=== PATIENT | female | born 1965 | race Caucasian/White ===

== ENCOUNTER 2020-04-06 20:28 | Emergency (ER) | payer SELFPAY ==
[~2020-04-06] VITALS: Ht 154.9 cm; Wt 92.1 kg
[2020-04-06] MEDS ORDERED: diphenhydrAMINE 50 MG/ML VIAL ONE (20:37)
[2020-04-06] MEDS ORDERED: FAMOTIDINE 20 MG/2 ML VIAL ONE (20:37)
[2020-04-06] MEDS ORDERED: IV NORMAL SALINE 1000ML BAG 1,000 ML IV ONE (20:45)
[2020-04-06] MEDS ORDERED: methylPREDNISolone SOD SUCC PF 125 MG/2 ML VIAL. IV ONE (20:45)
[2020-04-06] MEDS ORDERED: FAMOTIDINE 20 MG/2 ML VIAL IVP ONE (20:45)
[2020-04-06] MEDS ORDERED: diphenhydrAMINE 50 MG/ML VIAL IVP ONE (20:45)
--- NOTE | 2020-04-06 20:46 | PHYS DOC ---
General Adult EDM: Chief Complaint: ALLERGIC REACTION HPI: HPI: Patient is a 54 year old female who presents with states she was stung by a wasp around 1900 tonight. She began getting hives and very itchy. Patient has a large hive to her right upper thigh that is almost baseball sized. She has many hives all over her back and on her abdomen and to the right side of her tongue. Her palms are also very itchy. Patient took 125 mg of Benadryl by mouth before coming at 1900. (BEATRIZ BOWEN APRN) Review of Systems: Review of Systems: Constitutional: Denies fever or chills. [] Eyes: Denies change in visual acuity. [] HENT: Denies nasal congestion or sore throat. Hives to right side of tongue. [] Respiratory: Denies cough or shortness of breath. [] Cardiovascular: Denies chest pain or edema. [] GI: Denies abdominal pain, nausea, vomiting, bloody stools or diarrhea. [] : Denies dysuria. [] Musculoskeletal: Denies back pain or joint pain. Itching palms bilaterally. [] Integument: Denies rash. Hives to back and chest and tongue. Right upper thigh hive where she was stung. [] Neurologic: Denies headache, focal weakness or sensory changes. [] Endocrine: Denies polyuria or polydipsia. [] Lymphatic: Denies swollen glands. [] Psychiatric: Denies depression or anxiety. [] (BEATRIZ BOWEN APRN) Heart Score: Risk Factors: Risk Factors: DM, Current or recent (<one month) smoker, HTN, HLP, family history of CAD, obesity. Risk Scores: Score 0 - 3: 2.5% MACE over next 6 weeks - Discharge Home Score 4 - 6: 20.3% MACE over next 6 weeks - Admit for Clinical Observation Score 7 - 10: 72.7% MACE over next 6 weeks - Early Invasive Strategies (BEATRIZ BOWEN APRN) Current Medications: Current Medications Medications (Trade) Dose Ordered Sig/Daryl Start Time Stop Time Status Last Admin Dose Admin Diphenhydramine HCl (Benadryl) 50 mg STK-MED ONCE 04/06/20 20:37 04/06/20 20:37 DC Famotidine (Pepcid Vial) 20 mg STK-MED ONCE 04/06/20 20:37 04/06/20 20:37 DC Methylprednisolone Sodium Succinate (SOLU-Medrol 125MG VIAL) 125 mg 1X ONCE 04/06/20 20:45 04/06/20 20:46 UNV Sodium Chloride 1,000 ml @ 1,000 mls/hr 1X ONCE 04/06/20 20:45 04/06/20 21:44 UNV 04/06/20 20:39 1,000 MLS/HR (BEATRIZ BOWEN APRN) Physical Exam: PE: Constitutional: Well developed, well nourished, no acute distress, non-toxic appearance. [] HENT: Normocephalic, atraumatic, bilateral external ears normal, oropharynx moist, no oral exudates, nose normal. Hives on right side of tongue. [] Eyes: PERRLA, EOMI, conjunctiva normal, no discharge. [] Neck: Normal range of motion, no tenderness, supple, no stridor. [] Cardiovascular:Heart rate regular rhythm, no murmur [] Lungs & Thorax: Bilateral breath sounds clear to auscultation [] Abdomen: Bowel sounds normal, soft, no tenderness, no masses, no pulsatile masses. [] Skin: Warm, dry, no erythema, no rash. Hives to her back and around on her abdomen. Palms are red and itchy bilaterally. Large hive to right upper thigh where sting. [] Back: No tenderness, no CVA tenderness. [] Extremities: No tenderness, no cyanosis, no clubbing, ROM intact, no edema. [] Neurologic: Alert and oriented X 3, normal motor function, normal sensory function, no focal deficits noted. [] Psychologic: Affect normal, judgement normal, mood normal. [] (BEATRIZ BOWEN APRN) EKG: EKG: [] (BEATRIZ BOWEN APRN) Radiology/Procedures: Radiology/Procedures: [] (BEATRIZ BOWEN APRN) Course & Med Decision Making: Course & Med Decision Making Pertinent Labs and Imaging studies reviewed. (See chart for details) Patient speaks in full complete sentences. Alert and oriented. Ambulatory with a steady gait. Lungs are clear to auscultation all lobes. There is no swelling in the throat or the uvula. See HPI. No respiratory distress. Patient is not given more Benadryl due to her taking 125 mg p.o. prior to arrival. She is given 125 of Solu-Medrol IV and Pepcid. 1899: Patient is reported off to Dr Gibson [] (BEATRIZ BOWEN APRN) Course & Med Decision Making recheck 940 pm tongue normal breathing well improved symptoms ok to dc return precautions discussed rx prednisone (CADEN GIBSON MD) Dragon Disclaimer: Dragon Disclaimer: This electronic medical record was generated, in whole or in part, using a voice recognition dictation system. (BEATRIZ BOWEN APRN) Departure Departure Impression: Primary Impression: Allergic reaction Disposition: 01 HOME, SELF-CARE Condition: STABLE Scripts Prednisone (PREDNISONE) 50 Mg Tablet 1 TAB PO DAILY, #3 TAB Prov: CADEN GIBSON MD 04/06/20 Justicifation of Admission Dx: Justifications for Admission: Justification of Admission Dx: N/A (BEATRIZ BOWEN APRN) Justification of Admission Dx: N/A (CADEN GIBSON MD) BEATRIZ BOWEN APRN Apr 06, 2020 20:46 CADEN GIBSON MD Apr 06, 2020 21:37
[2020-04-06] MEDS ORDERED: PRED50TA PO (21:15)
[2020-04-06 21:48] VITALS: BP 146/59
== END 2020-04-06 22:00 | disposition home or self-care (01) ==
LOC: ER 20:28
DX: T63.461A Toxic effect of venom of wasps, accidental (unintentional), initial encounter (principal); L50.9 Urticaria, unspecified; L29.9 Pruritus, unspecified; Y92.89 Other specified places as the place of occurrence of the external cause
CPT/HCPCS: 96374; 96375; 99284; J2930; J3490; J7030